=== PATIENT | female | born 1990 | race Caucasian/White ===

== ENCOUNTER 2016-07-08 21:47 | Emergency (ER) | payer OTHER ==
[2016-07-08] MEDS ORDERED: KETOROLAC TROMETHAMINE 60 MG/2 ML VIAL ONE (23:32)
[2016-07-08] MEDS ORDERED: HYDROCODONE/ACETAMINOPHEN 5/325MG TABLET ONE (23:32)
[2016-07-08] MEDS ORDERED: ONDANSETRON 4 MG ODT TAB ONE (23:32)
== END 2016-07-08 23:50 | disposition home or self-care (01) ==
LOC: ED 21:47
DX: M70.831 Other soft tissue disorders related to use, overuse and pressure, right forearm (principal); Y93.H2 Activity, gardening and landscaping
CPT/HCPCS: 99283 ×2; 96372; J1885; A9270 ×2